=== PATIENT | male | born 1995 | race Caucasian/White ===

== ENCOUNTER 2019-07-09 22:58 | Observation (INO) | payer OTHER ==
[2019-07-09 23:31] LABS: BASOPHILS # (AUTO) 0.1 10^3/uL (0.0-0.1); BASOPHILS % (AUTO) 0.5 %; EOSINOPHILS % (AUTO) 0.1 %; HGB - HEMOGLOBIN 15.7 g/dL (14.0-18.0); LYMPHOCYTES # (AUTO) 1.5 10^3/uL (1.5-3.5); LYMPHOCYTES % (AUTO) 11.8 %; MEAN CORPUSCULAR HGB CONC 33.5 g/dL (32.0-36.0); MEAN CORPUSCULAR VOLUME 89.3 fL (80.0-94.0); MEAN PLATELET VOLUME 9.6 fL (7.4-11.4); MONOCYTES # (AUTO) 0.5 10^3/uL (0.0-1.0); MONOCYTES % (AUTO) 3.5 %; NEUTROPHILS # (AUTO) 10.9 10^3/uL (1.5-6.6); NEUTROPHILS % (AUTO) 83.8 %; PLT - PLATELET COUNT 285 10^3/uL (130-450); RED BLOOD COUNT 5.24 10^6/uL (4.70-6.10); RED CELL DISTRIBUTION WIDTH 12.8 % (12.0-15.0)
[2019-07-09 23:36] LABS: MUDS CUTOFF CONCENTRATIONS CUTOFF CONC BELOW:
[2019-07-09 23:43] LABS: ACETAMINOPHEN < 10 ug/mL (10-30); BUN - BLOOD UREA NITROGEN 8 mg/dL (6-20); CALCIUM 9.1 mg/dL (8.5-10.3); CARBON DIOXIDE - CO2 20 mmol/L (21-32); CHLORIDE 106 mmol/L (101-111); CREATININE 0.8 mg/dL (0.6-1.2); GFR - MDRD 118 (>89); GLUCOSE 121 mg/dL (70-100); SALICYLATE < 6.0 mg/dL; SODIUM 138 mmol/L (135-145)
[2019-07-09 23:56] LABS: AMPHETAMINE SCREEN,URINE NEGATIVE (NEGATIVE); BENZODIAZEPINES SCREEN, URINE NEGATIVE (NEGATIVE); COCAINE SCREEN URINE NEGATIVE (NEGATIVE); METHADONE SCREEN, URINE NEGATIVE (NEGATIVE); METHAMPHETAMINES SCREEN, URINE NEGATIVE (NEGATIVE); OPIATE SCREEN, URINE NEGATIVE (NEGATIVE); OXYCODONE SCREEN, URINE NEGATIVE (NEGATIVE); PROPOXYPHENE SCREEN, URINE NEGATIVE (NEGATIVE); TRICYCLIC ANTIDEPRESSANT,URINE NEGATIVE (NEGATIVE)
--- NOTE | 2019-07-09 23:56 | ED Physician Documentation ---
PD HPI OVERDOSE - Stated complaint Stated Complaint: SI - Chief complaint Chief Complaint: MHE - History obtained from History obtained from: Patient - History of Present Illness Timing - onset: How many hours ago (3.5) Subtance(s) ingested: Single Associated symptoms: Diaphoresis. No: Cardiac arrest, Resp depression, Altered mental status, Agitated, Combative, Hallucinations, Abdominal pain, Dyspnea Contributing factors: Depresssed, Suicidal Recently seen: Not recently seen - Additional information Additional information: Is a 24-year-old man who attempted suicide tonight by ingesting 850 mg Zoloft tablets approximately 3-1/2 hours prior to presentation. He has not vomited. He denies any recent physical illness including sore throat, coughing, fever, vomiting. He is sweaty but denies chest pains or shortness of breath. He was brought in by his beronica and tells me he attempted to kill himself few years ago by hanging and was obviously unsuccessful. He was admitted to a psychiatric facility at that time. He is not currently seeing a psych counselor or psychiatrist. He is in the [place]. Review of Systems Constitutional: denies: Fever Nose: denies: Congestion Throat: denies: Sore throat Cardiac: denies: Chest pain / pressure, Palpitations Respiratory: denies: Dyspnea, Cough GI: denies: Abdominal Pain, Nausea, Vomiting : denies: Dysuria Skin: denies: Rash Neurologic: denies: Generalized weakness, Focal weakness, Seizure Psychiatric: reports: Depressed, Suicidal Endocrine: reports: Other (He is not diabetic.) PD PAST MEDICAL HISTORY - Past Medical History Past Medical History: Yes Psych: Depression Other Past Medical History: SA & SI - Past Surgical History Past Surgical History: Yes - Present Medications Home Medications: Ambulatory Orders Medication Instructions Recorded Confirmed Sertraline [Zoloft] 50 mg PO DAILY 07/09/19 07/09/19 - Allergies Allergies/Adverse Reactions: Allergies Allergy/AdvReac Type Severity Reaction Status Date / Time No Known Drug Allergies Allergy Verified 07/09/19 23:09 - Social History Does the pt smoke?: Yes Smoking Status: Current every day smoker Does the pt drink ETOH?: No Does the pt have substance abuse?: No - Immunizations Immunizations are current?: Yes - POLST Patient has POLST: No PD ED PE NORMAL - Vitals Vital signs reviewed: Yes - General General: Alert and oriented X 3, No acute distress, Well developed/nourished, Other (Patient is diaphoretic) - HEENT HEENT: Atraumatic, PERRL (Pupils are dilated but slowly reactive), Other (Mucous membranes are dry) - Neck Neck: No adenopathy, Thyroid normal - Cardiac Cardiac: RRR, No murmur, No rub, Strong equal pulses - Respiratory Respiratory: No respiratory distress, Clear bilaterally - Abdomen Abdomen: Normal bowel sounds, Soft, Non tender, Non distended, No organomegaly - Derm Derm: Normal color, Other (Diaphoretic) - Extremities Extremities: No deformity, No edema - Neuro Neuro: Alert and oriented X 3, cutter down 2-12 intact, No motor deficit, No sensory deficit, Normal speech - Psych Psych: Other (Flat affect. No apparent hallucinations.) Results - Vitals Vitals: Vital Signs - 24 hr 07/09/19 07/10/19 07/10/19 23:00 00:06 00:27 Temperature 37.0 C Heart Rate 97 82 84 Respiratory 16 20 19 Rate Blood Pressure 149/87 H 142/84 H 137/82 H O2 Saturation 99 96 96 Oxygen O2 Source Room air - EKG (time done) 2326 Rate: Rate (enter#) Rhythm: NSR Intervals: Normal [place] QRS: Normal Ischemia: Normal ST segments Compare to prior EKG: Old EKG unavailable - Labs Labs: Laboratory Tests 07/09/19 07/09/19 07/09/19 23:15 23:22 23:22 WBC 13.0 H RBC 5.24 Hgb 15.7 Hct 46.8 MCV 89.3 MCH 30.0 MCHC 33.5 RDW 12.8 Plt Count 285 MPV 9.6 Neut # (Auto) 10.9 H Lymph # (Auto) 1.5 [place] # (Auto) 0.5 Eos # (Auto) 0.0 Baso # (Auto) 0.1 Absolute Nucleated RBC 0.00 Nucleated RBC % 0.0 Sodium 138 Potassium 3.8 Chloride 106 Carbon Dioxide 20 L Anion Gap 12.0 BUN 8 Creatinine 0.8 Estimated GFR (MDRD) 118 Glucose 121 H Calcium 9.1 Salicylates < 6.0 Urine Opiates Screen NEGATIVE Ur Oxycodone Screen NEGATIVE Urine Methadone Screen NEGATIVE Ur Propoxyphene Screen NEGATIVE Acetaminophen < 10 L Ur Barbiturates Screen NEGATIVE Ur Tricyclics Screen NEGATIVE Ur Phencyclidine Scrn NEGATIVE Ur Amphetamine Screen NEGATIVE U Methamphetamines Scrn NEGATIVE U Benzodiazepines Scrn NEGATIVE Urine Cocaine Screen NEGATIVE U Cannabinoids Screen NEGATIVE Ethyl Alcohol 7.8 PD MEDICAL DECISION MAKING - ED course Complexity details: reviewed results, d/w patient, d/w family, d/w dietitian consultant ED course: Patient's drug screen is negative. Acetaminophen and salicylate levels are normal. White blood cell count was minimally elevated at 13 glucose was a little elevated but otherwise labs are normal. EKG did not show any conduction delay. Patient was diaphoretic with dilated pupils I spoke to poison control they recommended observation for 24 hours and treatment with benzodiazepines if he develops any clonus, seizures or elevated heart rate. Departure - Departure Disposition: ED Place in Observation Clinical Impression: Serotonin syndrome, Suicide attempt
[2019-07-10] MEDS ORDERED: SODIUM CHLORIDE FLUSH 0.9% 10 ML SYRINGE IVP PRN (01:22)
--- NOTE | 2019-07-10 01:32 | HISTORY & PHYSICAL EXAMINATION ---
Chief Complaint - Chief Complaint Chief Complaint: intentional drug overdose History of Present Illness - Admitted From Admitted From:: [facility] ED - History Obtained From Records Reviewed: yes History obtained from: patient and spouse - History of Present Illness HPI Comment/Other: Patient seen and examined on 07/10/19 at 3:00am. Patient was brought to the ED by his after he reported intentionally taking 8 tablets of zoloft around 10 am on 07/09/19. He acknowledges it was with the intention of hurting himself. He has attempted hurting himself before (about 3 yrs ago). He was admitted into a psych facility in [place]. He reused to discuss the specifics of the incident 3 years ago and refuses to discuss what is going on in his life currently and contributing to the currently episode. He denies suicidal ideations currently. He works for the [employer]. He is very abrupt in his responses , flat and seems shut off emotionally at the moment. His is at bedside and has the same demeanor. He denies chest pain, NAYELY, abd pain, n/v/d, fever or chills. It was reported that his pupils were dilated at presentation, he was diaphoretic and tachycardic. He currently appears calm. The rest of his history is unremarkable. History - Past Medical History Psych: reports: Depression, Other (Suicidal Attempt) MRSA Hx?: No Other Past Medical History: SA & SI - Family & Social History Family History: Father: [place], Other family: Diabetes, Type 2 (maternal grandmother) Social History Notes: Lives at home with his . He works for the [employer]. He denies alcohol, tobacco or illicit drug use - POLST Patient has POLST: No POLST Status: Full Code Meds/Allgy - Home Medications Home Medications: Ambulatory Orders Medication Instructions Recorded Confirmed Sertraline [Zoloft] 50 mg PO DAILY 07/09/19 07/09/19 - Allergies Allergies/Adverse Reactions: Allergies Allergy/AdvReac Type Severity Reaction Status Date / Time No Known Drug Allergies Allergy Verified 07/09/19 23:09 Review of Systems - Constitutional Constitutional: reports: Diaphoresis. denies: Fatigue, Fever, Chills, Weakness - Eyes Eyes: denies: Blurred vision, Vision loss, Dipolpia - Ears, Nose & Throat Ears, Nose & Throat: denies: Nasal pain, Sore throat, Hoarseness - Cardiovascular Cariovascular: denies: Chest pain, Edema, Syncope - Respiratory Respiratory: denies: Cough, Sputum production, Wheezing, SOB at rest, SOB with exertion - Gastrointestinal Gastrointestinal: denies: Abdominal pain, Abdominal distention, Constipation, Diarrhea, Nausea, Vomiting, Reflux/heartburn - Genitourinary Genitourinary: denies: Frequency, Urgency, Hematuria, Flank pain - Musculoskeletal Musculoskeletal: denies: Muscle pain, Back pain, Muscle aches, Gout - Integumentary Integumentary: denies: Rash, Pruritis - Neurological Neurological: denies: General weakness, Focal weakness, Headache, Dizziness, Numbness, Memory problems - Psychiatric Psychiatric: reports: Depression, Suicidal. denies: Delusions, Hallucinations - Endocrine Endocrine: denies: Polyuria, Polydypsia - Hematologic/Lymphatic Hematologic/Lymphatic: denies: Anemia, Bruising, Blood clots Prior Level of Functionality: Independent of activities of daily living Lives at home with his . He works for the [employer]. Exam - Vital Signs Vital Signs: Vital Signs x48h Temp Pulse Resp BP Pulse Ox 07/10/19 01:19 84 16 145/80 H 97 07/10/19 00:27 84 19 137/82 H 96 07/10/19 00:06 82 20 142/84 H 96 07/09/19 23:00 37.0 C 97 16 149/87 H 99 - Physical Exam General Appearance: positive: No acute distress, Alert. negative: Lethargic Eyes Bilateral: positive: EOMI ENT: positive: ENT inspection nml, Pharynx nml Neck: positive: Nml inspection, No JVD, Trachea midline Respiratory: positive: Chest non-tender, No respiratory distress, Breath sounds nml. negative: Wheezes, Rales, Rhonchi Cardiovascular: positive: No murmur, No gallop, Tachycardia Abdomen: positive: Non-tender, No organomegaly, Nml bowel sounds, No distention. negative: Guarding, Rebound Back: positive: Nml inspection Skin: positive: Color nml, No rash, Warm, Dry Extremities: positive: Non-tender, Full ROM, Nml appearance, No pedal edema Neurologic/Psychiatric: positive: Oriented x3, CN's nml (2-12), Motor nml, Other (depressed, suicidal) Conclusion/Plan - Problem List (1) Suicide attempt Conclusion/Plan: Patient took 8 tablets of zoloft Concern for serotonin syndrome Will need to monitor for at least 24 hours and treat symptoms as they arise Hold all medications. IV hydration. 1:1 Observation Social work consult in the am. - Lab Results Fish Bones: 07/09/19 23:22 07/09/19 23:22 Core Measures - Anticipated LOS I expect patient to be DC'd or transferred within 96 hours.: Yes
[2019-07-10] MEDS: SODIUM CHLORIDE 0.9% 1,000 ML IV SCH ×2 (03:38→11:07)
[2019-07-10 05:23] LABS: BASOPHILS # (AUTO) 0.1 10^3/uL (0.0-0.1); BASOPHILS % (AUTO) 0.5 %; EOSINOPHILS % (AUTO) 0.1 %; HGB - HEMOGLOBIN 14.7 g/dL (14.0-18.0); LYMPHOCYTES # (AUTO) 2.2 10^3/uL (1.5-3.5); LYMPHOCYTES % (AUTO) 19.2 %; MEAN CORPUSCULAR HEMOGLOBIN 29.8 pg (27.0-31.0); MEAN CORPUSCULAR HGB CONC 33.1 g/dL (32.0-36.0); MEAN CORPUSCULAR VOLUME 89.9 fL (80.0-94.0); MEAN PLATELET VOLUME 9.9 fL (7.4-11.4); MONOCYTES # (AUTO) 0.7 10^3/uL (0.0-1.0); MONOCYTES % (AUTO) 6.3 %; NEUTROPHILS # (AUTO) 8.2 10^3/uL (1.5-6.6); NEUTROPHILS % (AUTO) 73.5 %; PLT - PLATELET COUNT 272 10^3/uL (130-450); RED BLOOD COUNT 4.94 10^6/uL (4.70-6.10); RED CELL DISTRIBUTION WIDTH 12.8 % (12.0-15.0); WHITE BLOOD COUNT 11.2 x10^3/uL (4.8-10.8)
[2019-07-10 05:36] LABS: CALCIUM 9.1 mg/dL (8.5-10.3); CREATININE 0.8 mg/dL (0.6-1.2)
[2019-07-10] MEDS ORDERED: POLYETHYLENE GLYCOL 3350 17 GM PACKET PO SCH (09:00)
[2019-07-10] MEDS: SODIUM CHLORIDE FLUSH 0.9% 10 ML SYRINGE IVP SCH ×2 (11:06→17:06)
--- NOTE | 2019-07-10 12:12 | PROVIDER PROGRESS NOTE ---
Subjective - Prog Note Date Prog Note Date: 07/10/19 Prog Note Time: 12:10 - Subjective Pt reports feeling: Improved Subjective: in bed with him, crying out and loud. She is crying. Has her head covered with blankete and won't come out. "i want to go home". RN explains she can go home, it's just her that has to stay. She is crying, voice childlike, saying "I want him to go home with me." He is tired but alert, no nausea, no diaphoresis. Denies cp, sob, does't have much appetite. Current Medications - Current Medications Current Medications: Active Medications Sodium Chloride (Normal Saline 0.9%) 1,000 mls @ 125 mls/hr IV .Q8H [facility] Last Admin: 07/10/19 11:07 Dose: 125 mls/hr Polyethylene Glycol (Miralax) 17 gm PO DAILY [facility] Last Admin: 07/10/19 11:06 Dose: Not Given Sodium Chloride (Normal Saline Flush 0.9%) 10 ml IVP PRN PRN PRN Reason: NEEDED PER PROVIDER ORDERS Last Admin: 07/10/19 03:39 Dose: 10 ml Sodium Chloride (Normal Saline Flush 0.9%) 10 ml IVP 0100,0900,1700 [facility] Last Admin: 07/10/19 11:06 Dose: Not Given Sertraline [Zoloft] 50 mg PO DAILY 07/09/19 Objective - Vital Signs/Intake & Output Reviewed Vital Signs: Yes Vital Signs: Vital Signs x48h Temp Pulse Resp BP Pulse Ox 07/10/19 11:29 37.1 C 80 16 148/86 H 97 07/10/19 07:41 36.8 C 73 16 133/65 H 94 Intake & Output: Intake & Output 07/07/19 07/08/19 07/09/19 07/10/19 23:59 23:59 23:59 23:59 Intake Total 1160 Balance 1160 - Objective General Appearance: positive: No acute distress, Alert Eyes Bilateral: positive: PERRL, EOMI ENT: positive: Pharynx nml Neck: positive: No JVD Respiratory: positive: No respiratory distress. negative: Wheezes, Rales, Rhonchi Cardiovascular: positive: Regular rate & rhythm. negative: Systolic murmur, Gallop/S4, Friction rub Abdomen: positive: Non-tender, No organomegaly, Nml bowel sounds, No distention Skin: positive: Warm, Dry Extremities: positive: Non-tender Neurologic/Psychiatric: positive: Oriented x3, CN's nml (2-12), Motor nml, Sensation nml. negative: Weakness, Facial droop, Slurred/abnml speech - Lab Results Fish Bones: 07/10/19 04:43 07/10/19 04:43 Other Labs: Lab Results x24hrs 07/10/19 07/10/19 07/09/19 Range/Units 04:43 04:43 23:22 WBC 11.2 H (4.8-10.8) x10^3/uL RBC 4.94 (4.70-6.10) 10^6/uL Hgb 14.7 (14.0-18.0) g/dL Hct 44.4 (42.0-52.0) % MCV 89.9 (80.0-94.0) fL MCH 29.8 (27.0-31.0) pg MCHC 33.1 (32.0-36.0) g/dL RDW 12.8 (12.0-15.0) % Plt Count 272 (130-450) 10^3/uL MPV 9.9 (7.4-11.4) fL Neut # (Auto) 8.2 H (1.5-6.6) 10^3/uL Lymph # (Auto) 2.2 (1.5-3.5) 10^3/uL [place] # (Auto) 0.7 (0.0-1.0) 10^3/uL Eos # (Auto) 0.0 (0.0-0.7) 10^3/uL Baso # (Auto) 0.1 (0.0-0.1) 10^3/uL Absolute Nucleated RBC 0.00 x10^3/uL Nucleated RBC % 0.0 /100WBC Sodium 142 138 (135-145) mmol/L Potassium 3.8 3.8 (3.5-5.0) mmol/L Chloride 108 106 (101-111) mmol/L Carbon Dioxide 23 20 L (21-32) mmol/L Anion Gap 11.0 12.0 (6-13) BUN 8 8 (6-20) mg/dL Creatinine 0.8 0.8 (0.6-1.2) mg/dL Estimated GFR (MDRD) 118 118 (>89) Glucose 98 121 H (70-100) mg/dL Calcium 9.1 9.1 (8.5-10.3) mg/dL Salicylates < 6.0 mg/dL Urine Opiates Screen (NEGATIVE) Ur Oxycodone Screen (NEGATIVE) Urine Methadone Screen (NEGATIVE) Ur Propoxyphene Screen (NEGATIVE) Acetaminophen < 10 L (10-30) ug/mL Ur Barbiturates Screen (NEGATIVE) Ur Tricyclics Screen (NEGATIVE) Ur Phencyclidine Scrn (NEGATIVE) Ur Amphetamine Screen (NEGATIVE) U Methamphetamines Scrn (NEGATIVE) U Benzodiazepines Scrn (NEGATIVE) Urine Cocaine Screen (NEGATIVE) U Cannabinoids Screen (NEGATIVE) Ethyl Alcohol 7.8 mg/dL 07/09/19 07/09/19 Range/Units 23:22 23:15 WBC 13.0 H (4.8-10.8) x10^3/uL RBC 5.24 (4.70-6.10) 10^6/uL Hgb 15.7 (14.0-18.0) g/dL Hct 46.8 (42.0-52.0) % MCV 89.3 (80.0-94.0) fL MCH 30.0 (27.0-31.0) pg MCHC 33.5 (32.0-36.0) g/dL RDW 12.8 (12.0-15.0) % Plt Count 285 (130-450) 10^3/uL MPV 9.6 (7.4-11.4) fL Neut # (Auto) 10.9 H (1.5-6.6) 10^3/uL Lymph # (Auto) 1.5 (1.5-3.5) 10^3/uL [place] # (Auto) 0.5 (0.0-1.0) 10^3/uL Eos # (Auto) 0.0 (0.0-0.7) 10^3/uL Baso # (Auto) 0.1 (0.0-0.1) 10^3/uL Absolute Nucleated RBC 0.00 x10^3/uL Nucleated RBC % 0.0 /100WBC Sodium (135-145) mmol/L Potassium (3.5-5.0) mmol/L Chloride (101-111) mmol/L Carbon Dioxide (21-32) mmol/L Anion Gap (6-13) BUN (6-20) mg/dL Creatinine (0.6-1.2) mg/dL Estimated GFR (MDRD) (>89) Glucose (70-100) mg/dL Calcium (8.5-10.3) mg/dL Salicylates mg/dL Urine Opiates Screen NEGATIVE (NEGATIVE) Ur Oxycodone Screen NEGATIVE (NEGATIVE) Urine Methadone Screen NEGATIVE (NEGATIVE) Ur Propoxyphene Screen NEGATIVE (NEGATIVE) Acetaminophen (10-30) ug/mL Ur Barbiturates Screen NEGATIVE (NEGATIVE) Ur Tricyclics Screen NEGATIVE (NEGATIVE) Ur Phencyclidine Scrn NEGATIVE (NEGATIVE) Ur Amphetamine Screen NEGATIVE (NEGATIVE) U Methamphetamines Scrn NEGATIVE (NEGATIVE) U Benzodiazepines Scrn NEGATIVE (NEGATIVE) Urine Cocaine Screen NEGATIVE (NEGATIVE) U Cannabinoids Screen NEGATIVE (NEGATIVE) Ethyl Alcohol mg/dL ABX Reporting Has patient been on IV antibiotics over the past 48 hours?: No Assessment/Plan - Problem List (1) Suicide attempt Impression: Medically stable for evaluation by CDP/Social work. If needed, stable for transfer Patient took 8 tablets of zoloft Concern for serotonin syndrome Poison control said to monitor for at least 8 hours for seizures and treat serotonin symptoms as they arise Hold all medications. IV hydration. 1:1 Observation It has been the requisite time. Vitals stable. No nausea, sweats, BP changes. No seizures. Social work will see the patient this am.
--- NOTE | 2019-07-10 15:38 | Discharge Plan ---
Discharge Plan Problem Reviewed?: Yes Disposition: [facility] Hosp/Unit DC/Xfer Condition: Fair Diet: Regular Activity Restrictions: Activity as Tolerated Shower Restrictions: No Driving Restrictions: No Health Concerns: You were admitted to the emergency room because of an intentional overdose with Zoloft, 8 tablets. Side effects of that could include seizures or serotonin syndrome. As such you were placed under observation for these side effects. Plan of Treatment: Observation on telemetry. Care Goals: Transfer to [facility] per request of your [place]. Assessment: patient understands and agrees to care plan. No Smoking: If you smoke, Please STOP! Call for help.
[2019-07-10 16:00] VITALS: BP 147/77
--- NOTE | 2019-07-10 19:55 | DISCHARGE SUMMARY ---
Discharge Summary Admit Date: 07/10/19 Discharge Date: 07/10/19 Discharging Provider: Lesa Mckeon MD Primary Care Provider: [facility] Practice Code Status: Attempt Resuscitation Condition at Discharge: Fair Discharge Disposition: [facility] Hosp/Unit DC/Xfer - DIAGNOSES Discharge Diagnoses with Status of Each Condition: Suicide attempt with zoloft - HPI History of Present Illness: Patient seen and examined on 07/10/19 at 3:00am. Patient was brought to the ED by his after he reported intentionally taking 8 tablets of zoloft around 10 am on 07/09/19. He acknowledges it was with the intention of hurting himself. He has attempted hurting himself before (about 3 yrs ago). He was admitted into a psych facility in [place]. He reused to discuss the specifics of the incident 3 years ago and refuses to discuss what is going on in his life currently and contributing to the currently episode. He denies suicidal ideations currently. He works for the [employer]. He is very abrupt in his responses , flat and seems shut off emotionally at the moment. His is at bedside and has the same demeanor. He denies chest pain, NAYELY, abd pain, n/v/d, fever or chills. It was reported that his pupils were dilated at presentation, he was diaphoretic and tachycardic. He currently appears calm. The rest of his history is unremarkable. History - Past Medical History Psych: reports: Depression, Other (Suicidal Attempt) MRSA Hx?: No Other Past Medical History: SA & SI - HOSPITAL COURSE Hospital Course: he was observed for a few hours to watch for seizures and serotonin syndrome. Vitals remained stable. No sweats, nausea. Socail work evaluation done and [place] wants him to go to [facility]. - ALLERGIES Allergies/Adverse Reactions: Allergies Allergy/AdvReac Type Severity Reaction Status Date / Time No Known Drug Allergies Allergy Verified 07/09/19 23:09 - PHYSICAL EXAM AT DISCHARGE General Appearance: positive: No acute distress, Alert Eyes Bilateral: positive: PERRL ENT: positive: Pharynx nml Neck: positive: No JVD Respiratory: positive: Chest non-tender. negative: Wheezes, Rales, Rhonchi Cardiovascular: positive: Regular rate & rhythm. negative: Systolic murmur, Gallop/S4, Friction rub Peripheral Pulses: positive: 1+ Abdomen: positive: Non-tender, No organomegaly, Nml bowel sounds, No distention Skin: positive: Warm, Dry. negative: Diaphoresis Extremities: positive: Full ROM, No pedal edema Neurologic/Psychiatric: positive: Oriented x3, CN's nml (2-12), Motor nml, Sen sation nml - LABS Result Diagrams: 07/10/19 04:43 07/10/19 04:43 - TIME SPENT Time Spent in Discharge (Minutes): 15
== END 2019-07-10 18:30 ==
LOC: ED 22:58 → MS3 07-10 01:22
PROVIDERS: ADMIT Internal Medicine; ATTEND Specialist
DX: T43.222A Poisoning by selective serotonin reuptake inhibitors, intentional self-harm, initial encounter (principal); R61 Generalized hyperhidrosis; H57.04 Mydriasis; R00.0 Tachycardia, unspecified; D72.829 Elevated white blood cell count, unspecified; R73.9 Hyperglycemia, unspecified; F32.9 Major depressive disorder, single episode, unspecified; F17.200 Nicotine dependence, unspecified, uncomplicated
CPT/HCPCS: 36415; 80048; 80320; 80329; 85025; 93005; 96360; 96361; 99285; G0378; 80306; 80307